=== PATIENT | female | born 1975 | race Caucasian/White ===

== ENCOUNTER 2017-02-04 17:32 | Outpatient (CLI) | payer BC ==
[~2017-02-04] VITALS: Ht 167.6 cm; Wt 108.7 kg
[~2017-02-04 17:32] MED LIST: AUG875 PO; CEPH-443 PO; CIPR-173; DOXY100T20 PO; IBUP-1542 PO; IBUP800T25 PO; METR500T PO; ONDA4TAB8; VIC
[2017-02-04] MEDS ORDERED: PRENAT PO (17:49)
[2017-02-04 17:50] VITALS: BP 122/68; PULSE 85; RESP 18; Ht 167.6 cm; Wt 108.7 kg
--- NOTE | 2017-02-04 18:52 | QN ---
Documentation Comment 41 years old female with IUP at 26 weeks and 1/7 presented with complaint of contractions today. Denies any LOF or decreased movement. Reports mild dysuria. Denies any fever or chills or any other symptoms GA: A&O, NAD Abdomen: Soft, gravid. Non tender. no suprapubic tenderness. Fundal Height consistent with GA NST: Cat 1 No contractions seen on monitor Urine dip: Assessment: IUP atg 26 weeks and 4/7 cramps, rare contractions seen on the monitor, resolved after hydration UA negative Patient denies any cramps and contractions DC home Strict labor precaution discussed with kick counts Follow up with OB office in a couple of days discussed with adequate hydration. SUDARSHAN COOPER MD February 04, 2017 18:52
[2017-02-04 19:56] LABS: ADD UMIC NO; URINE BILIRUBIN (Dip) NEGATIVE (NEGATIVE); URINE BLOOD (Dip) NEGATIVE (NEGATIVE); URINE COLOR LT. YELLOW (YELLOW); URINE GLUCOSE (Dip) NEGATIVE (NEGATIVE); URINE KETONES (Dip) NEGATIVE (NEGATIVE); URINE LEUKOCYTE ESTERASE (Dip) NEGATIVE (NEGATIVE); URINE NITRITE (Dip) NEGATIVE (NEGATIVE); URINE TOTAL PROTEIN (Dip) NEGATIVE (NEGATIVE); URINE UROBILINOGEN (Dip) 0.2 E.U./dL (0.1-1.0)
--- NOTE | 2017-02-04 20:47 | TRIAGE ---
OB Triage Datetime Report Generated by CPN: 02/04/2017 20:46 Datetime: 02/04/2017 18:38 Stage of : OB Triage Maternal Assessment Level of Consciousness: Fully Conscious Labor Evaluation Frequency: NONE Monitor Mode: External Resting Tone [place]: Relaxed Heart Rate FHR Baseline Rate: 145 Monitor Mode: External US Variability: Moderate 6-25 bpm Accelerations: 10X10 Decelerations: Variable (Annotations: AGA) Pain Assessment Pain Scale: 0 Pain Goal: 3 Vaginal Exam Membrane Status: Intact Vaginal Bleeding: None Datetime: 02/04/2017 17:46 Assessment Type: Triage Maternal Assessment Level of Consciousness: Fully Conscious DTR's/Clonus: DTRs 2+; No Clonus Headache: Denies Blurred Vision: No Respiratory Effort: Unlabored; Regular Rhythm; Equal Expansion Breath Sounds, Left: Clear and Equal Breath Sounds, Right: Clear and Equal Nausea/Vomiting: Denies RUQ Epigastric Pain: Denies Lower Extremities Edema: None Degree: None Upper Extremities Edema: None Degree: None Facial Edema: None Fall Risk Assessment History of Falling: (0) No Secondary Diagnosis: (0) No Ambulatory Aid: (0) Bedrest/Nurse Assist IV Therapy: (0) No Gait: (0) Normal/Bedrest/Immobile Mental Status: (0) Oriented to Own Ability Fall Score: 0 Fall Risk Score Definition: No Risk: No action required Datetime: 02/04/2017 17:44 Time of Arrival: 02/04/2017 17:25 EGA: 26.3 Arrived By: Ambulatory Arrived From: Home Chief Complaint: c/o UC X 2 DAYS Movement: Present Contractions: Irregular Rupture of Membranes: Denies Vaginal Bleeding: None Vaginal Discharge: Denies Recent Sexual Intercouse: Denies Abdominal Trauma: Not Applicable Patient Complaints: Contractions; Cramping; Back Pain Time Provider Notified: 02/04/2017 18:20 Provider Notified: KENNETH Initial Plan: EFM, UA Datetime: 02/04/2017 17:41 Monitor Mode: External Monitor Mode: External US
== END 2017-02-04 20:20 | disposition home or self-care (01) ==
LOC: L-D 17:32 → OBT 17:32
PROVIDERS: ATTEND Obstetrics & Gynecology
DX: O62.9 Abnormality of forces of labor, unspecified (principal); Z3A.26 26 weeks gestation of pregnancy
CPT/HCPCS: 81003; Z7500; G0463

== ENCOUNTER 2017-03-23 19:13 | Outpatient (CLI) | payer BC ==
[~2017-03-23] VITALS: Ht 167.6 cm; Wt 109.9 kg
[~2017-03-23 19:13] MED LIST changes: -AUG875 PO; -CEPH-443 PO; -CIPR-173; -DOXY100T20 PO; -IBUP-1542 PO; -IBUP800T25 PO; -METR500T PO; -ONDA4TAB8; +PRENAT PO; -VIC
[2017-03-23 19:49] VITALS: Ht 167.6 cm; Wt 109.9 kg
[2017-03-23 20:09] LABS: ADD UMIC NO; UR ASCORBIC ACID NEGATIVE (NEGATIVE); UR BACTERIA FEW /HPF (NONE SEEN); UR BILIRUBIN (Dip) NEGATIVE (NEGATIVE); UR BLOOD (Dip) NEGATIVE (NEGATIVE); UR CLARITY SLIGHTLY CLOUDY (CLEAR); UR COLOR YELLOW (YELLOW); UR GLUCOSE (Dip) NEGATIVE (NEGATIVE); UR KETONES (Dip) NEGATIVE (NEGATIVE); UR LEUKOCYTE ESTERASE (Dip) NEGATIVE Leu/ul (NEGATIVE); UR MUCUS FEW /HPF (NONE SEEN); UR NITRITE (Dip) NEGATIVE (NEGATIVE); UR RBC 1 /HPF (0-5); UR SPECIFIC GRAVITY (Dip) 1.015 (1.003-1.030); UR SQUAMOUS EPITHELIAL CELL FEW /HPF (FEW); UR TOTAL PROTEIN (Dip) NEGATIVE (NEGATIVE); UR UROBILINOGEN (Dip) 1+ mg/dL (NEGATIVE)
[2017-03-23] MEDS ORDERED: ACETAMINOPHEN 325 MG TAB PO ONE (21:00)
--- NOTE | 2017-03-23 22:54 | TRIAGE ---
OB Triage Datetime Report Generated by CPN: 03/23/2017 22:54 Datetime: 03/23/2017 22:53 Stage of : OB Triage Datetime: 03/23/2017 22:30 Labor Evaluation Frequency: X1 Monitor Mode: External Duration (sec)2399: 60 Pattern: Normal: <= 5 Contractions in 10 Minutes Heart Rate FHR Baseline Rate: 135 Monitor Mode: External US FHR Baseline Changes: No Baseline Change Variability: Moderate 6-25 bpm Datetime: 03/23/2017 21:30 Labor Evaluation Frequency: X1 Monitor Mode: External Duration (sec)2399: 100 Pattern: Normal: <= 5 Contractions in 10 Minutes Heart Rate FHR Baseline Rate: 145 Monitor Mode: External US FHR Baseline Changes: No Baseline Change Variability: Moderate 6-25 bpm Datetime: 03/23/2017 20:30 Labor Evaluation Frequency: occ Monitor Mode: External Duration (sec)2399: 40-60 Pattern: Normal: <= 5 Contractions in 10 Minutes Heart Rate FHR Baseline Rate: 150 Monitor Mode: External US FHR Baseline Changes: No Baseline Change Variability: Moderate 6-25 bpm Datetime: 03/23/2017 19:26 Stage of : OB Triage Datetime: 03/23/2017 19:10 Assessment Type: Triage Maternal Assessment Level of Consciousness: Fully Conscious Headache: Denies Blurred Vision: No Respiratory Effort: Unlabored; Regular Rhythm; Equal Expansion Breath Sounds, Left: Clear and Equal Breath Sounds, Right: Clear and Equal Nausea/Vomiting: Denies RUQ Epigastric Pain: Denies Facial Edema: None Fall Risk Assessment History of Falling: (0) No Secondary Diagnosis: (0) No Ambulatory Aid: (0) Bedrest/Nurse Assist IV Therapy: (0) No Gait: (0) Normal/Bedrest/Immobile Mental Status: (0) Oriented to Own Ability Fall Score: 0 Fall Risk Score Definition: No Risk: No action required Datetime: 03/23/2017 19:09 Time of Arrival: 03/23/2017 19:09 EGA: 33.1 Arrived By: Wheelchair Arrived From: Home Chief Complaint: LOWER ABD PAIN W/ BODY CHILLS Movement: Present Contractions: Denies/Absent Rupture of Membranes: Denies Vaginal Bleeding: None Vaginal Discharge: Denies Recent Sexual Intercouse: Denies Abdominal Trauma: Not Applicable Patient Complaints: Other Time Provider Notified: 03/23/2017 20:53 Provider Notified: HADADIAN Initial Plan: EFM, CALL OB, UA Datetime: 02/04/2017 17:46 Fall Score: 0 Fall Risk Score Definition: No Risk: No action required Datetime: 02/04/2017 17:44 EGA: 26.3
--- NOTE | 2017-03-30 14:34 | HP ---
DATE OF ADMISSION: 03/23/2017 CHIEF COMPLAINT: Cold symptoms. HISTORY OF PRESENT ILLNESS: A 41-year-old 7 para 4-0-2-4 with single intrauterine at 30 weeks and 1 day complaining of body aches, headache and cold symptoms. She states good movement. She denies nausea, vomiting, shortness of breath, chest pain, visual changes, vaginal bleeding, leakage of fluid, urinary or GI symptoms. PHYSICAL EXAMINATION: VITAL SIGNS: Blood pressure 120/72, pulse rate 83 per minute, respiratory rate 16 per minute, temperature 98.4. GENERAL APPEARANCE: Comfortable, no acute distress, appropriate mood and affect. HEART: Regular rate and rhythm. No murmur. LUNGS: Clear to auscultation bilaterally. ABDOMEN: Soft, nontender. Uterine fundal height 32 weeks. FLANK: No CVA tenderness bilateral. EXTREMITIES: Mild edema. No varicose veins, thigh or calf tenderness bilateral. Homans sign negative bilateral. HEART RATE: 140 bpm, moderate variability with acceleration, no deceleration. UTERINE CONTRACTIONS: Occasional. The patient is not feeling those. ASSESSMENT AND PLAN: A 41-year-old 7 para 4-0-2-4 with single intrauterine at 33 weeks and 1 day with upper respiratory tract infection. One dose of [place] given. The patient feels better. Recommend increased fluid intake. Take Tylenol p.r.n. Signs or symptoms of labor, preeclampsia, kick count discussed with patient. She expressed understanding. All of her questions answered. She is discharged home in stable condition with follow up with her primary care physician and primary CLINICAL SYSTEMS EDUCATOR. Dictated By: Dayana Kirkland MD /asya/ec /Document#: [id number] BELA
== END 2017-03-23 23:00 | disposition home or self-care (01) ==
LOC: OBT 19:13 → L-D 19:13 → OBT 23:00
PROVIDERS: ATTEND Obstetrics & Gynecology
DX: O98.513 Other viral diseases complicating pregnancy, third trimester (principal); J06.9 Acute upper respiratory infection, unspecified; Z3A.30 30 weeks gestation of pregnancy; O09.523 Supervision of elderly multigravida, third trimester
CPT/HCPCS: 81001; Z7500; Z7610; 81003; G0463

== ENCOUNTER 2017-05-07 16:00 | Inpatient (IN) | payer BC ==
[~2017-05-07] VITALS: Ht 157.5 cm; Wt 114.7 kg
[2017-05-07] MEDS ORDERED: OXYTOCIN 30 UNITS/LR 500 ML IV PRN (18:00)
[2017-05-07] MEDS ORDERED: OXYTOCIN 30 UNITS/LR 500 ML IV SCH ×5 (18:00→22:00)
[2017-05-07] MEDS ORDERED: LACTATED RINGER'S 1,000 ML IV PRN (18:00)
[2017-05-07] MEDS ORDERED: IBUPROFEN 600 MG TAB PO PRN ×2 (18:00→20:00)
[2017-05-07] MEDS ORDERED: LIDOCAINE 1% (MPF) 30 ML INJ INJ PRN (18:00)
[2017-05-07] MEDS ORDERED: MISOPROSTOL 200 MCG TAB PR PRN (18:00)
[2017-05-07] MEDS ORDERED: METHYLERGONOVINE 0.2 MG INJ IM PRN (18:00)
[2017-05-07] MEDS ORDERED: CARBOPROST 250 MCG INJ IM PRN (18:00)
--- NOTE | 2017-05-07 18:48 | RADRPT ---
PROCEDURE: US OB Limited for Estimated Weight. CLINICAL INDICATION: 41 years of age, female. Macrosomia TECHNIQUE: Multiple sonographic images of the pelvis were obtained. Transabdominal imaging only w as performed. The images were reviewed on a PACS workstation. Image quality: Satisfactory. COMPARISON: No prior studies are available for comparison. FINDINGS: Boogie : Number of fetuses: 1 GENERAL EVALUATION: Cardiac activity: Present. FHR 157 bpm Presentation: Cephalic Placenta: Placenta site: Anterior right. No evidence of placental previa. Placental grade 2. Cervix (transabdominal): Not evaluated TRU: Not evaluated. DATING: Clinical JASMIN: May 07, 2017 EGA based on JASMIN: 40 weeks 0 days BIOMETRY: BPD = 9.4 cm , 38 weeks 3 days HC = 33.6 cm , 38 weeks 4 days AC = 37.6 cm , 41 weeks 4 days (97 th percentile for gestational age) FL = 7.5 cm , 38 weeks 3 days Composite sonographic age: 39 weeks 2 days plus or minus 3 weeks Estimated due date by ultrasound measurements: May 12, 2017 EFW 4003 grams, 80th percentile. ANATOMY: Not evaluated. IMPRESSION: 1. Single living fetus in cephalic presentation. 2. Clinical gestation age of 40 weeks 0 days and clinical JASMIN May 07, 2017 are concordant with th e composite sonographic age within 5 days. 3. Fetus is large for dates. Estimated weight is 4003 grams that is at the 80th percentile fo r gestational age. Abdominal circumference is at the 97th percentile for gestational age. 4. Anterior right placenta, grade 2. RPTAT: HCTS Physician Marilyn Date Time Electronically viewed and signed by Physician Marilyn on 05/07/2017 18:48 CS/
[2017-05-07 19:12] VITALS: BP 149/82; PULSE 66; RESP 18
[2017-05-07] MEDS ORDERED: AMPICILLIN 2 GM/NS (PMX) 100 ML IV ONE (20:00)
[2017-05-07] MEDS: LACTATED RINGER'S 1,000 ML IV SCH (20:02)
[2017-05-07 20:57] LABS: BASOPHILS % 0.1 % (0.0-2.0); EOSINOPHILS # 0.1 10^3/ul (0.0-0.5); EOSINOPHILS % 1.7 % (0.0-7.0); HEMATOCRIT 34.5 % (37.0-47.0); HEMOGLOBIN 12.4 g/dl (12.0-16.0); LYMPHOCYTES # 2.2 10^3/ul (0.8-2.9); LYMPHOCYTES % 30.9 % (15.0-51.0); MEAN CORPUSCULAR HGB CONC 35.9 g/dl (32.0-37.0); MEAN CORPUSCULAR VOLUME 91.8 fl (82.0-101.0); MEAN PLATELET VOLUME 9.6 fl (7.4-10.4); MONOCYTE # 0.5 10^3/ul (0.3-0.9); MONOCYTES % 7.4 % (0.0-11.0); NEUTROPHILS % 59.8 % (39.0-77.0); PLATELET COUNT 178 10^3/UL (140-415); RED BLOOD COUNT 3.76 10^6/ul (4.20-5.40); RED CELL DISTRIBUTION WIDTH 12.4 % (11.5-14.5); WHITE BLOOD COUNT 7.2 10^3/ul (4.8-10.8)
[2017-05-07 21:18] LABS: INR 0.83; PROTIME 11.4 Sec (12.2-14.2); PT RATIO 0.9
[2017-05-07 21:19] LABS: PARTIAL THROMBOPLASTIN TIME 26.4 Sec (25.0-35.0)
[2017-05-08] MEDS: AMPICILLIN 1 GM/NS (PMX) 50 ML IV SCH ×2 (00:12→04:00)
[2017-05-08] MEDS: LACTATED RINGER'S 1,000 ML IV SCH (01:39)
[2017-05-08] MEDS: LACTATED RINGER'S 1,000 ML IV* SCH ×2 (05:13→13:13)
[2017-05-08] MEDS: OXYTOCIN 30 UNITS/LR 500 ML IV SCH ×2 (05:13→09:13)
--- NOTE | 2017-05-08 05:21 | LDN ---
Date/Time of Note Date/Time of Note DATE: 05/08/17 TIME: 05:18 Delivery Summary of a viable baby girl weighing 3805 grams, or 8# 6 oz, 19" long, and with Apgars of 9/9. Weeks of Gestation 41w 1d Placenta Delivered: Spontaneously Meconium: none Episiotomy: No Perineal laceration: 1 Laceration repair: First degree perineal and vaginal lacerations repaired with 2-0 chromic. Anesthesia type: Local Estimated blood loss: 200 Sponge & Needle done & correct: Yes All needle counts correct: Yes Any foreign bodies felt in the: No (vagina) Problems: Infant Delivery Information Sex Sex: female Apgars 1 Minute: 9 5 Minute: 9 Suctioning Nose & mouth suctioned at marquis: Yes Delee suction performed: No Umbilical Cord Umbilical cord with: 3 Vessels Cord presentations: no nuchal cord Cord Blood was obtained: Yes Mother & Baby Disposition Disposition Mom & Baby to Maternity; Good: Yes Baby to NICU: No PARKER ALBA MD May 08, 2017 05:21
--- NOTE | 2017-05-08 05:28 | HP ---
Date/Time of Note Date/Time of Note DATE: 05/08/17 TIME: 05:21 OB - History Hx of Present Free Text/Dictation 41 y.o. A3 with an IUP at 41 weeks presented for induction of labor for post dates. Chief Complaint: Postdates. Estimated Due Date: Apr 30, 2017 : 7 Para: 4 Spontaneous : 2 Care: Good Care Ultrasounds: Normal mid trimester US Obstetrical Complications: None Medical Complications: None Other Concerns: PMHx: none. PSHx: none. All: morphine. Past Family/Social History * Past Medical, Surgical, Family and Obstetric Histories reviewed from chart. Blood Type: B+ Rubella: unknown RPR/VDRL: Negative GBS Status: Unknown HBsAG: Unknown OB Admission Exam Vital Signs Vital Signs Vital Signs Date Time Temp Pulse Resp B/P Pulse Ox O2 Delivery O2 Flow Rate FiO2 05/07/17 19:12 98.5 66 18 149/82 Room Air Last 72 hours Lab Results CBC & BMP 05/07/17 19:55 PARKER ALBA MD May 08, 2017 05:28
[2017-05-08] MEDS ORDERED: MISOPROSTOL 200 MCG TAB PR PRN (05:30)
[2017-05-08] MEDS ORDERED: OXYTOCIN 30 UNITS/LR 500 ML IV PRN (05:30)
[2017-05-08] MEDS ORDERED: LANOLIN 7 GM TUBE TOP PRN (05:30)
[2017-05-08] MEDS ORDERED: CARBOPROST 250 MCG INJ IM PRN (05:30)
[2017-05-08] MEDS ORDERED: METHYLERGONOVINE 0.2 MG INJ IM PRN (05:30)
[2017-05-08] MEDS: IBUPROFEN 600 MG TAB PO SCH ×3 (06:00→18:18)
[2017-05-08 06:10] VITALS: BP 128/66; PULSE 61; RESP 18
[2017-05-08 08:00] VITALS: BP 129/81; PULSE 60; RESP 18
[2017-05-08] MEDS ORDERED: BENZOCAINE 20% 56 ML SPRAY TOP PRN (10:00)
[2017-05-08] MEDS ORDERED: WITCH HAZEL/GLYCERIN PAD PR PRN (10:00)
[2017-05-08] MEDS: OXYCODONE/ACETAMINOPHEN (5/325) TAB PO PRN (10:54)
[2017-05-08 12:29] VITALS: BP 147/72; PULSE 57; RESP 18
[2017-05-08 15:36] VITALS: BP 133/73; PULSE 64; RESP 18
[2017-05-08 20:00] VITALS: BP 142/89; PULSE 71; RESP 18
[2017-05-09 04:00] VITALS: BP 111/64; PULSE 59; RESP 18
[2017-05-09] MEDS: IBUPROFEN 600 MG TAB PO SCH ×5 (06:52→23:34)
[2017-05-09 07:24] LABS: BASOPHILS % 0.3 % (0.0-2.0); EOSINOPHILS # 0.2 10^3/ul (0.0-0.5); EOSINOPHILS % 2.3 % (0.0-7.0); HEMATOCRIT 34.4 % (37.0-47.0); HEMOGLOBIN 11.8 g/dl (12.0-16.0); LYMPHOCYTES # 2.6 10^3/ul (0.8-2.9); LYMPHOCYTES % 36.4 % (15.0-51.0); MEAN CORPUSCULAR HEMOGLOBIN 32.2 pg (29.0-33.0); MEAN CORPUSCULAR HGB CONC 34.3 g/dl (32.0-37.0); MEAN PLATELET VOLUME 9.5 fl (7.4-10.4); MONOCYTE # 0.5 10^3/ul (0.3-0.9); MONOCYTES % 6.5 % (0.0-11.0); NEUTROPHILS % 54.4 % (39.0-77.0); PLATELET COUNT 166 10^3/UL (140-415); RED BLOOD COUNT 3.66 10^6/ul (4.20-5.40); RED CELL DISTRIBUTION WIDTH 12.6 % (11.5-14.5)
[2017-05-09 08:00] VITALS: BP 113/71; PULSE 62; RESP 17
--- NOTE | 2017-05-09 11:46 | PN ---
Date/Time of Note Date/Time of Note DATE: 05/09/17 TIME: 11:45 OB Subjective Subjective Subjective ppd1 afebrile lochia normal ext normal Laboratory Tests Test 05/09/17 06:20 White Blood Count 7.010^3/ul Red Blood Count 3.6610^6/ul Hemoglobin 11.8g/dl Hematocrit 34.4% Mean Corpuscular Volume 94.0fl Mean Corpuscular Hemoglobin 32.2pg Mean Corpuscular Hemoglobin Concent 34.3g/dl Red Cell Distribution Width 12.6% Platelet Count 81674^3/UL Mean Platelet Volume 9.5fl Neutrophils % 54.4% Lymphocytes % 36.4% Monocytes % 6.5% Eosinophils % 2.3% Basophils % 0.3% Nucleated Red Blood Cells % 0.0/100WBC Neutrophils # (Manual) 3.810^3/ul Lymphocytes # 2.610^3/ul Monocytes # 0.510^3/ul Eosinophils # 0.210^3/ul Basophils # 0.010^3/ul Nucleated Red Blood Cells # 0.010^3/ul Current Medications Medications (Trade) Dose Ordered Sig/Jess Route PRN Reason Start Time Stop Time Status Last Admin Dose Admin Lactated Ringer's (Lr) 1,000 ml @ 125 mls/hr Q8H IV 05/07/17 17:37 05/08/17 05:18 DC 05/08/17 01:39 Lidocaine 30 ml 30 ml ONCE PRN INJ EPISIOTOMY/TEARING 05/07/17 18:00 05/08/17 05:18 DC Oxytocin/Lactated Ringer's 500 ml @ 125 mls/hr ONCE -MAY REPEAT X1 IV 05/07/17 18:00 05/08/17 05:18 DC Oxytocin/Lactated Ringer's 500 ml @ 125 mls/hr ONCE IV 05/07/17 18:00 05/08/17 05:16 DC 05/08/17 03:46 Ibuprofen 600 mg 600 mg ONCE PRN PO Mild Pain (Pain Score 1-3) 05/07/17 18:00 05/08/17 05:18 DC 05/08/17 03:33 Lactated Ringer's 1,000 ml @ 2,000 mls/hr Q30M PRN IV PRE-EPIDURAL BOLUS 05/07/17 18:00 05/08/17 05:18 DC Oxytocin/Lactated Ringer's 500 ml @ 0 mls/hr ONCE PRN IV For Hemorrhage Management 05/07/17 18:00 05/08/17 05:18 DC Methylergonovine Maleate (Methergine) 0.2 mg ONCE PRN IM VAGINAL BLEEDING 05/07/17 18:00 05/08/17 05:18 DC Carboprost Tromethamine (Hemabate) 250 mcg ONCE PRN IM VAGINAL BLEEDING 05/07/17 18:00 05/08/17 05:19 DC Misoprostol 1000 mcg 1,000 mcg ONCE PRN VT VAGINAL BLEEDING 05/07/17 18:00 05/08/17 05:19 DC Ampicillin 100 ml @ 100 mls/hr ONCE ONCE IV 05/07/17 20:00 05/07/17 20:59 DC 05/07/17 20:06 Ampicillin 50 ml @ 100 mls/hr Q4H IV 05/08/17 00:00 05/08/17 05:17 DC 05/08/17 00:12 Oxytocin/Lactated Ringer's 500 ml @ 125 mls/hr ONCE -MAY REPEAT X1 IV 05/07/17 20:00 05/08/17 05:17 DC Oxytocin/Lactated Ringer's 500 ml @ 125 mls/hr ONCE IV 05/07/17 20:00 05/08/17 05:17 DC Ibuprofen 600 mg 600 mg ONCE PRN PO Mild Pain (Pain Score 1-3) 05/07/17 20:00 05/08/17 05:17 DC Oxytocin/Lactated Ringer's 500 ml @ 0 mls/hr TITRATE IV 05/07/17 22:00 05/08/17 05:17 DC 05/07/17 22:17 Oxytocin/Lactated Ringer's 500 ml @ 125 mls/hr Q4H IV 05/08/17 05:13 05/08/17 13:12 DC Lactated Ringer's (Lr) 1,000 ml @ 125 mls/hr Q8H IV* 05/08/17 05:13 05/08/17 15:40 DC Ibuprofen (Motrin) 600 mg Q6 PO 05/08/17 06:00 05/09/17 11:36 Lanolin (Dhi-E-Fkpyjp) 1 applic BEDSIDE MEDICATION PRN TOP BEDSIDE FOR PHILIPP TO NIPPLES 05/08/17 05:30 05/08/17 10:53 Diphtheria/ Tetanus/Acell Pertussis 0.5 ml 0.5 ml ONCE ONCE IM* 05/10/17 09:00 05/10/17 09:01 Oxytocin/Lactated Ringer's 500 ml @ 0 mls/hr ONCE PRN IV For Hemorrhage Management 05/08/17 05:30 Methylergonovine Maleate (Methergine) 0.2 mg ONCE PRN IM VAGINAL BLEEDING 05/08/17 05:30 Carboprost Tromethamine (Hemabate) 250 mcg ONCE PRN IM VAGINAL BLEEDING 05/08/17 05:30 Misoprostol (Cytotec) 1,000 mcg ONCE PRN VT VAGINAL BLEEDING 05/08/17 05:30 Benzocaine (Dermoplast [place]) 1 spray PRN PRN TOP HEMORRHOID/EPISIOTMY PAIN 05/08/17 10:00 05/08/17 10:53 Witch [place]ania/ Glycerin (Tucks Pads) 1 pad PRN PRN VT HEMORRHOID/EPISIOTMY PAIN 05/08/17 10:00 05/08/17 10:53 Oxycodone/ Acetaminophen (Percocet (5/ 325)) 1 tab Q4H PRN PO PAIN 05/08/17 10:00 05/08/17 10:54 JAI DE LEON MD May 09, 2017 11:46
[2017-05-09 16:00] VITALS: BP 128/76; PULSE 73; RESP 18
[2017-05-09 20:10] VITALS: BP 134/76; PULSE 70; RESP 18
[2017-05-10] MEDS: IBUPROFEN 600 MG TAB PO SCH ×2 (06:25→11:35)
[2017-05-10 08:00] VITALS: BP 123/58; PULSE 76; RESP 18
[2017-05-10] MEDS ORDERED: DIPHTH/TET/ACEL PERTUSS (ADULT) 0.5 ML VIAL IM* ONE (09:00)
[2017-05-10] MEDS: OXYCODONE/ACETAMINOPHEN (5/325) TAB PO PRN (09:18)
--- NOTE | 2017-05-10 17:14 | DS ---
Date/Time of Note Date/Time of Note DATE: 05/10/17 TIME: 17:13 Obstetrical Discharge Record Final Diagnosis Final Diagnosis: Term delivered Vaginal Delivery Obstetrical Delivery: Spontaneous Condition on Discharge Physical Assessment Voiding: Yes Bowel Movement: Yes Breast: Soft, non-tender Fundus: Firm Calf Tenderness: No Patient Condition: Stable JAYE HARVEY MD May 10, 2017 17:14
== END 2017-05-10 14:48 | disposition home or self-care (01) | DRG 775 ==
LOC: L-D 16:15 → PP1 05-08 06:02
PROVIDERS: ADMIT Obstetrics & Gynecology; ATTEND Obstetrics & Gynecology
PROC: 10E0XZZ Delivery of Products of Conception, External Approach (ICD-10-PCS; principal; 2017-05-08)
PROC: 0HQ9XZZ Repair Perineum Skin, External Approach (ICD-10-PCS; 2017-05-08)
PROC: 3E033VJ Introduction of Other Hormone into Peripheral Vein, Percutaneous Approach (ICD-10-PCS; 2017-05-08)
DX: O70.0 First degree perineal laceration during delivery (principal); O48.0 Post-term pregnancy; Z3A.41 41 weeks gestation of pregnancy; Z37.0 Single live birth
CPT/HCPCS: 76815; 85025; 85610; 85730; 86592; 86900; 86901; 87340; J0290; J2590; J7120

== ENCOUNTER 2017-05-14 10:28 | Emergency (ER) | payer BC ==
[~2017-05-14] VITALS: Ht 175.3 cm; Wt 102.0 kg
[2017-05-14 10:39] VITALS: Ht 175.3 cm; Wt 102.0 kg
[2017-05-14] MEDS ORDERED: LIDOCAINE 1% (MDV) 20 ML INJ SC ONE (12:00)
[2017-05-14] MEDS ORDERED: ACETAMINOPHEN 325 MG TAB PO ONE (12:00)
[2017-05-14] MEDS ORDERED: DOCU-144 PO (12:22)
[2017-05-14] MEDS ORDERED: ACET500C5 PO (12:22)
--- NOTE | 2017-05-14 12:27 | ERD ---
ER Documentation Chief Complaint Date/Time DATE: 05/14/17 TIME: 12:25 Chief Complaint Complains of rectal bleed Hx of Hemrrhoids HPI This 42-year-old female is approximately 1 week status post vaginal delivery. She was referred by primary doctor for evaluation of thrombosed hemorrhoids. Patient has no bleeding, fevers, vomiting. Patient denies history of significant constipation. ROS All systems reviewed and are negative except as per history of present illness. Medications Home Meds Active Scripts Docusate Sodium* (Colace*) 100 Mg Capsule, 100 MG PO BID, #20 CAP Prov:BRIAN WASHINGTON MD 05/14/17 Acetaminophen* (Tylophen*) 500 Mg Capsule, 1 CAP PO Q6H Y for PAIN AND OR ELEVATED TEMP, #15 CAP Prov:BRIAN WASHINGTON MD 05/14/17 Reported Medications Multivit/Min/Fol Ac/Iron/Pren* ( S*) 1 Tab Tab, 1 TAB PO DAILY, TAB 02/04/17 Allergies Allergies: Coded Allergies: morphine (Verified Allergy, Severe, SOB, 03/23/17) PMhx/Soc History of Surgery: Yes (cholecystectomy) Anesthesia Reaction: No Hx Neurological Disorder: No Hx Respiratory Disorders: No Hx Cardiac Disorders: No Hx Psychiatric Problems: No Hx Miscellaneous Medical Probl: No Hx Alcohol Use: No Hx Substance Use: No Hx Tobacco Use: No Smoking Status: Never smoker Physical Exam Vitals Vital Signs Date Time Temp Pulse Resp B/P Pulse Ox O2 Delivery O2 Flow Rate FiO2 05/14/17 10:39 98.6 75 20 157/95 95 Physical Exam Const: [] Head: Atraumatic Eyes: Normal Conjunctiva ENT: Normal External Ears, Nose and Mouth. Neck: Full range of motion..~ No meningismus. Resp: Clear to auscultation bilaterally Cardio: Regular rate and rhythm, no murmurs Abd: Soft, non tender, non distended. Normal bowel soundsAlert, non-ill- appearing. Rectal exam with the assistance of a detonator assembler shows 3 areas of swollen external hemorrhoids with possible thrombosis at 12:00, 4:00 and 8:00. There is no active bleeding, erythema, warmth. Skin: No petechiae or rashes Back: No midline or flank tenderness Ext: No cyanosis, or edema Neur: Awake and alert Psych: Normal Mood and Affect Results 24 hrs Current Medications Medications (Trade) Dose Ordered Sig/Jess Route PRN Reason Start Time Stop Time Status Last Admin Dose Admin Acetaminophen (Tylenol Tab) 650 mg ONCE ONCE PO 05/14/17 12:00 05/14/17 12:01 DC 05/14/17 12:07 Lidocaine (Xylocaine 1% (Mdv) 20 ml) 20 ml ONCE ONCE SC 05/14/17 12:00 05/14/17 12:01 DC Procedures/MDM Patient presents with what appears to be likely thrombosed external hemorrhoids. Procedure note-the rectal area was prepped with Betadine. 3 cc of lidocaine was used for local infiltration. An 18-gauge needle and scissors were used to incise the hemorrhoids and via blunt dissection several clots were removed. Patient tolerated procedure well and there is no active bleeding after procedure. Patient will be discharged home with a prescription for Colace Tylenol and primary care follow-up and return precautions. Departure Diagnosis: Primary Impression: External hemorrhoid, thrombosed Condition: Stable Patient Instructions: Thrombosed Hemorrhoids Additional Instructions: SIENTE EN AGUA TIBIA. Cheque otro vez con leon doctor primario en el proximo santos or regresa para mas o nueva simptomas. BRIAN WASHINGTON MD May 14, 2017 12:26
== END 2017-05-14 12:35 | disposition home or self-care (01) ==
LOC: FTE 10:28
DX: O99.63 Diseases of the digestive system complicating the puerperium (principal); K64.5 Perianal venous thrombosis
CPT/HCPCS: 46083; 99284; Z7610

== ENCOUNTER 2017-07-24 12:19 | Emergency (ER) | END 2017-07-24 16:46 | disposition home or self-care (01) | DX: G44.229 Chronic tension-type headache, not intractable (principal); R40.2252 Coma scale, best verbal response, oriented, at arrival to emergency department; R40.2142 Coma scale, eyes open, spontaneous, at arrival to emergency department; R40.2362 Coma scale, best motor response, obeys commands, at arrival to emergency department | CPT/HCPCS: 85025; Z7502; Z7610 ==

== ENCOUNTER 2017-12-28 11:01 | Emergency (ER) | END 2017-12-28 13:50 | disposition home or self-care (01) ==

== ENCOUNTER 2018-04-14 03:46 | Emergency (ER) | END 2018-04-14 05:26 | disposition home or self-care (01) ==

== ENCOUNTER 2019-01-29 17:19 | Emergency (ER) | payer BC ==
[~2019-01-29] VITALS: Wt 90.0 kg
[~2019-01-29 17:19] MED LIST changes: +ACET500C5 PO; +DOCU-144 PO; +IBUP800T48 PO; +MECL12.574 PO; +NAPR-985 PO; +ONDA4TAB14 PO
[2019-01-29 17:29] VITALS: BP 140/84; PULSE 76; RESP 18
[2019-01-29] MEDS ORDERED: IBUP-1542 PO (17:52)
[2019-01-29] MEDS ORDERED: OFLO5DRO7 LEFT EAR (17:53)
--- NOTE | 2019-01-29 17:56 | ERD ---
ER Documentation Chief Complaint Chief Complaint LEFT EAR PAIN AND MILD R EAR PAIN FOR 1 WK. NO FEVERS.NO COUGH HPI This 43-year-old FEmale presents with left ear pain for the last week. She has discharge. She denies any cough, congestion, vomiting or abdominal pain, additional symptoms. ROS All systems reviewed and are negative except as per history of present illness. Medications Home Meds Active Scripts Ofloxacin Otic (Ofloxacin Otic) 5 Ml Drops, 5 DROP LEFT EAR BID for 7 Days, #1 BOTTLE Prov:BRIAN WASHINGTON MD 01/29/19 Ibuprofen* (Motrin*) 600 Mg Tab, 600 MG PO Q6, #15 TAB Prov:BRIAN WASHINGTON MD 01/29/19 Ondansetron (Ondansetron Odt) 4 Mg Tab.rapdis, 4 MG PO Q6H PRN for NAUSEA AND/OR VOMITING, #20 TAB Prov:FRDEI GILBERT NP 04/14/18 Meclizine Hcl* (Antivert*) 12.5 Mg Tab, 25 MG PO Q6H PRN for DIZZINESS, #20 TAB Prov:FREDI GILBERT PAINTING WORKER 04/14/18 Naproxen* (Naprosyn*) 500 Mg Tablet, 500 MG PO BID PRN for PAIN AND/OR INFLAMMATION, #30 TAB Prov:RADHA SABILLON PA-C 12/28/17 Ibuprofen* (Motrin*) 800 Mg Tab, 800 MG PO Q6H PRN for PAIN AND OR ELEVATED TEMP, #30 TAB Prov:KIMBERLEE LONG MD 07/24/17 Docusate Sodium* (Colace*) 100 Mg Capsule, 100 MG PO BID, #20 CAP Prov:BRIAN WASHINGTON MD 05/14/17 Acetaminophen* (Tylophen*) 500 Mg Capsule, 1 CAP PO Q6H PRN for PAIN AND OR ELEVATED TEMP, #15 CAP Prov:BRIAN WASHINGTON MD 05/14/17 Reported Medications Multivit/Min/Fol Ac/Iron/Pren* ( S*) 1 Tab Tab, 1 TAB PO DAILY, TAB 02/04/17 Allergies Allergies: Coded Allergies: morphine (Verified Allergy, Severe, SOB, 04/14/18) PMhx/Soc History of Surgery: Yes (cholecystectomy) Anesthesia Reaction: No Hx Neurological Disorder: No Hx Respiratory Disorders: No Hx Cardiac Disorders: No Hx Psychiatric Problems: No Hx Miscellaneous Medical Probl: No Hx Alcohol Use: No Hx Substance Use: No Hx Tobacco Use: No FmHx Family History: No diabetes, No coronary disease, No other Physical Exam Vitals Vital Signs Date Temp Pulse Resp B/P (MAP) Pulse Ox O2 O2 Flow FiO2 Time Delivery Rate 01/29/19 98.0 76 18 140/84 99 17:29 (102) Physical Exam Const: No acute distress Head: Atraumatic Eyes: Normal Conjunctiva ENT: Normal External Ears, Nose and Mouth. Left TM normal. There is irritation and discharge in the left external auditory canal without mastoid tenderness, facial or erythema. Neck: Full range of motion. No meningismus. Resp: Clear to auscultation bilaterally Cardio: Regular rate and rhythm, no murmurs Abd: Soft, non tender, non distended. Normal bowel sounds Skin: No petechiae or rashes Back: No midline or flank tenderness Ext: No cyanosis, or edema Neur: Awake and alert Psych: Normal Mood and Affect Results 24 hrs Current Medications Medications Dose Sig/Jess Start Time Status Last (Trade) Ordered Route PRN Stop Time Admin Dose Reason Admin 4 drop BID LEFT 01/29/19 DC 01/29/19 Ciprofloxacin EAR 21:00 18:14 HCl 01/29/19 21:00 (Ciprofloxaci n HCl Otic) Ibuprofen 600 mg ONCE ONCE 01/29/19 DC 01/29/19 (Motrin) PO 18:00 18:02 01/29/19 18:01 Procedures/MDM Patient presents with signs and symptoms of left otitis externa without signs of malignant otitis externa, mastoiditis, perforation, additional complications. She will be treated with ofloxacin, ibuprofen, primary care follow-up and return precautions. The patient was stable with no new complaints during the ER course. Clinically, there is no current evidence to suggest meningitis, sepsis, acute abdomen, pneumonia, stroke, acute coronary syndrome, pulmonary embolism, aortic dissection or any other emergent condition appearing to require further evaluation or hospitalization. Patient counseled regarding my diagnostic impression and care plan. Prior to discharge all questions answered. Pt agrees with treatment plan and understands strict return precautions. Pt is instructed to follow up with primary care provider within 24-48 hours. Precautionary instructions provided including instructions to return to the ER if not improving or for any worsening or changing symptoms or concerns. Disclaimer: Inadvertent spelling and grammatical errors are likely due to E HR/dictation software use and do not reflect on the overall quality of patient care. Also, please note that the electronic time recorded on this note does not necessarily reflect the actual time of the patient encounter. Departure Diagnosis: Primary Impression: Otitis externa Otitis externa type: unspecified type Chronicity: acute Laterality: left Qualified Codes: H60.502 - Unspecified acute noninfective otitis externa, left ear Additional Impression: Left ear pain Condition: Stable Patient Instructions: External Ear Infection (Adult) Additional Instructions: Cheque otro vez con leon doctor primario en el proximo santos or regresa para mas o nueva simptomas. BRIAN WASHINGTON MD January 29, 2019 17:56
[2019-01-29] MEDS ORDERED: IBUPROFEN 600 MG TAB PO ONE (18:00)
[2019-01-29] MEDS ORDERED: CIPROFLOXACIN HCL OTIC DROP 0.25 ML LEFT EAR SCH (21:00)
== END 2019-01-29 18:18 | disposition home or self-care (01) ==
LOC: FTE 17:19
DX: H60.502 Unspecified acute noninfective otitis externa, left ear (principal)
CPT/HCPCS: 99283; Z7610